=== PATIENT | female | born 1985 | race Two or more races ===

== ENCOUNTER 2020-01-09 14:22 | Emergency (ER) | payer OTHER ==
[~2020-01-09] VITALS: Ht 162.6 cm; Wt 103.0 kg
[~2020-01-09 14:22] MED LIST: DICY20TA; INTESTINEX680 MG PO; PRILOSEC10 MG; REGLAN5 MG/5 ML; ZANTAC150 MG PO
== END 2020-01-09 19:43 | disposition home or self-care (01) ==
LOC: ER 14:22
DX: K29.70 Gastritis, unspecified, without bleeding (principal); K59.09 Other constipation

== ENCOUNTER → 2020-02-21 | Outpatient (CLI) | payer OTHER ==
[~2020-02-21] MED LIST changes: +AYR SALINE NA14.1 GM NASAL; +BACITRACIN-POL3.5 GM TOP
== END | disposition home or self-care (01) ==
LOC: OFIC 805 11:17
DX: R04.0 Epistaxis (principal); S00.31XA Abrasion of nose, initial encounter; J34.89 Other specified disorders of nose and nasal sinuses; K29.00 Acute gastritis without bleeding

== ENCOUNTER 2020-04-15 09:24 | Outpatient (CLI) | payer OTHER ==
[~2020-04-15] VITALS: Ht 152.4 cm; Wt 103.0 kg
== END 2020-04-15 14:21 | disposition home or self-care (01) ==
LOC: OFIC 805 09:24
PROVIDERS: ATTEND Otolaryngology
DX: J34.89 Other specified disorders of nose and nasal sinuses (principal); S00.31XA Abrasion of nose, initial encounter; R04.0 Epistaxis; J04.0 Acute laryngitis

== ENCOUNTER 2020-04-16 07:18 | Outpatient (CLI) | payer OTHER | END 2020-04-16 07:28 | disposition home or self-care (01) | LOC: TOM 07:18 | PROVIDERS: ATTEND Otolaryngology | DX: J32.0 Chronic maxillary sinusitis (principal) ==

== ENCOUNTER → 2020-05-13 | Outpatient (CLI) | payer OTHER | END | disposition home or self-care (01) | LOC: OFIC 805 09:26 | PROVIDERS: ATTEND Otolaryngology | DX: R09.81 Nasal congestion (principal); J32.8 Other chronic sinusitis; G50.1 Atypical facial pain ==

== ENCOUNTER 2020-06-10 09:56 | Outpatient (CLI) | payer OTHER ==
[~2020-06-10] VITALS: Ht 162.6 cm; Wt 105.2 kg
== END 2020-06-10 18:23 | disposition home or self-care (01) ==
LOC: OFIC 805 09:56
PROVIDERS: ATTEND Otolaryngology
DX: J32.8 Other chronic sinusitis (principal); J34.89 Other specified disorders of nose and nasal sinuses; R09.81 Nasal congestion; S00.31XA Abrasion of nose, initial encounter; R04.0 Epistaxis; G50.1 Atypical facial pain

== ENCOUNTER → 2020-07-17 | Outpatient (CLI) | payer OTHER | END | disposition home or self-care (01) | LOC: OFIC 805 10:15 | PROVIDERS: ATTEND Otolaryngology | DX: G51.0 Bell's palsy (principal); J32.8 Other chronic sinusitis; R09.81 Nasal congestion; J34.2 Deviated nasal septum ==

== ENCOUNTER 2020-08-21 13:18 | Outpatient (CLI) | payer OTHER | END 2020-08-21 14:15 | disposition home or self-care (01) | LOC: OFIC 805 13:18 | PROVIDERS: ATTEND Otolaryngology | DX: J34.2 Deviated nasal septum (principal); G50.1 Atypical facial pain; R09.81 Nasal congestion; J34.3 Hypertrophy of nasal turbinates ==

== ENCOUNTER 2020-09-22 06:46 | Day surgery (SDC) | payer OTHER ==
[~2020-09-22 06:46] MED LIST changes: +PROTONIX40 M1; +SYMAX DUOTAB0.375 MG
[2020-09-22] MEDS ORDERED: AMOX1TAB5 PO (16:15)
[2020-09-22] MEDS ORDERED: AYR SALINE50 M2 NASAL (16:16)
[2020-09-22] MEDS ORDERED: MEDROLPACK PO (16:16)
== END 2020-09-22 19:10 | disposition home or self-care (01) ==
LOC: CIR.AMB 06:46
PROVIDERS: ATTEND Otolaryngology
DX: J34.2 Deviated nasal septum (principal); J34.3 Hypertrophy of nasal turbinates; Z20.828 Contact with and (suspected) exposure to other viral communicable diseases

== ENCOUNTER → 2020-09-29 | Outpatient (CLI) | payer OTHER ==
[~2020-09-29] MED LIST changes: +AMOX1TAB5 PO; +AYR SALINE50 M2 NASAL; +MEDROLPACK PO
== END | disposition home or self-care (01) ==
LOC: OFIC 805 11:30
PROVIDERS: ATTEND Otolaryngology
DX: J34.3 Hypertrophy of nasal turbinates (principal); J34.2 Deviated nasal septum; J32.8 Other chronic sinusitis

== ENCOUNTER → 2020-10-14 | Outpatient (CLI) | payer OTHER ==
[~2020-10-14] MED LIST changes: +FLONASE16 GM NASAL
== END | disposition home or self-care (01) ==
LOC: OFIC 805 12:24
PROVIDERS: ATTEND Otolaryngology
DX: J32.8 Other chronic sinusitis (principal); J34.3 Hypertrophy of nasal turbinates; J34.2 Deviated nasal septum; G50.1 Atypical facial pain

== ENCOUNTER → 2020-10-21 | Outpatient (CLI) | payer OTHER | END | disposition home or self-care (01) | LOC: OFIC 805 10:45 | PROVIDERS: ATTEND Otolaryngology | DX: J34.3 Hypertrophy of nasal turbinates (principal); J32.8 Other chronic sinusitis; J34.2 Deviated nasal septum ==

== ENCOUNTER → 2020-12-04 | Outpatient (CLI) | payer OTHER | END | disposition home or self-care (01) | LOC: OFIC 805 10:30 | PROVIDERS: ATTEND Otolaryngology | DX: J34.3 Hypertrophy of nasal turbinates (principal); J34.2 Deviated nasal septum; G50.1 Atypical facial pain ==